=== PATIENT | male | born 1990 | race Caucasian/White ===

== ENCOUNTER → 2024-02-14 | Outpatient (CLI) | payer MEDICAID ==
[2024-02-14 21:46] LABS: Estradiol <20.0 pg/mL
[2024-02-14 21:56] LABS: Follicle Stimulating Hormone 7.9 mIU/mL; Luteinizing Hormone 5.6 mIU/mL
== END | disposition home or self-care (01) ==
LOC: LABWHC1 15:30
PROVIDERS: ATTEND Obstetrics & Gynecology Reproductive Endocrinology
DX: Z01.812 Encounter for preprocedural laboratory examination (principal)
CPT/HCPCS: 36415; 82670; 83001; 83002; 84146; 84403; 84443

== ENCOUNTER → 2024-03-19 | Outpatient (CLI) | payer MEDICAID ==
--- NOTE | 2024-03-19 16:47 | US ---
EXAMINATION TYPE: US scrotum with doppler. Grayscale and color Doppler Duplex imaging performed of bindu gibson scrotum. DATE OF EXAM: 03/19/2024 COMPARISON: NONE CLINICAL INDICATION: Male, 33 years old with history of N50.819 TESTICULAR PAIN, UNSPECIFIED; Left si ded pain 3 months ago, gone now, no swelling EXAM MEASUREMENTS: TESTICLES: Right Testicle: 3.9 x 2.7 x 2.6 cm Left Testicle: 4.1 x 2.8 x 1.9 cm EPIDIDYMIS HEAD: Right Epididymis: 1.0 cm - cyst with calcs = 0.8 x 1.1 x 0.4cm Left Epididymis: 1.1 cm Doppler performed to assess for testicular vascularity; good bilateral color flow and waveforms are s een. There is no evidence of testicular torsion. Presence of hydroceles: mild bilaterally Presence of varicoceles: no IMPRESSION: 1. No evidence for testicular torsion or testicular mass. 2. Small bilateral hydroceles. 3. Benign-appearing right epididymal cyst with calcification.
== END | disposition home or self-care (01) ==
LOC: RADUSWWP 16:16
PROVIDERS: ATTEND Student in an Organized Health Care Education/Training Program
DX: N43.3 Hydrocele, unspecified (principal); N50.3 Cyst of epididymis; N50.819 Testicular pain, unspecified; N50.89 Other specified disorders of the male genital organs
CPT/HCPCS: 76870; 93975